=== PATIENT | female | born 1965 | race Caucasian/White ===

== ENCOUNTER 2021-06-05 10:25 | Emergency (ER) | payer BC, SELFPAY ==
--- NOTE | ~2021-06-05 | XR_ITS ---
EXAMINATION: XR LUMBAR SPINE XR HIPS WITH AP PELVIS, BILATERAL CLINICAL INFORMATION: Low back pain and bilateral hip pain. COMPARISON: None TECHNIQUE: AP pelvis 1 view. 2 views each hip. Lumbar spine 5 views. FINDINGS: AP PELVIS: There is normal symmetry of bilateral SI joints and hip joints. No visible fracture or dislocation seen. The soft tissues are normal. RIGHT HIP: AP and frog-leg views right hip reveal no fracture, dislocation, bony erosive changes or loose bodies. No lytic or sclerotic process. The soft tissues appears normal. LEFT HIP: AP and frog-leg views reveal normal hip joint space without bony erosive changes or loose bodies. No visible acute fracture or dislocation seen. No lytic or sclerotic process. LUMBAR SPINE: There is normal lumbar lordosis. The vertebral heights are normal. There is grade 1 anterolisthesis L4-L5. Mild loss of L5-S1 disc height is seen. There is mild ventral spondylosis. No visible acute fracture, dislocation or subluxation seen. XR/XR lumbar spine 4V min IMPRESSION: 1. Grade 1 anterolisthesis L4 on L5 with mild degenerative disc changes L4-L5 and L5 - S1 disc levels. There is mild ventral spondylosis. No lytic or sclerotic process seen. The soft tissues are normal. 2. Unremarkable AP pelvis and bilateral hip exam.
--- NOTE | ~2021-06-05 | XR_ITS ---
EXAMINATION: XR LUMBAR SPINE XR HIPS WITH AP PELVIS, BILATERAL CLINICAL INFORMATION: Low back pain and bilateral hip pain. COMPARISON: None TECHNIQUE: AP pelvis 1 view. 2 views each hip. Lumbar spine 5 views. FINDINGS: AP PELVIS: There is normal symmetry of bilateral SI joints and hip joints. No visible fracture or dislocation seen. The soft tissues are normal. RIGHT HIP: AP and frog-leg views right hip reveal no fracture, dislocation, bony erosive changes or loose bodies. No lytic or sclerotic process. The soft tissues appears normal. LEFT HIP: AP and frog-leg views reveal normal hip joint space without bony erosive changes or loose bodies. No visible acute fracture or dislocation seen. No lytic or sclerotic process. LUMBAR SPINE: There is normal lumbar lordosis. The vertebral heights are normal. There is grade 1 anterolisthesis L4-L5. Mild loss of L5-S1 disc height is seen. There is mild ventral spondylosis. No visible acute fracture, dislocation or subluxation seen. XR/XR hips JESUS min 3V IMPRESSION: 1. Grade 1 anterolisthesis L4 on L5 with mild degenerative disc changes L4-L5 and L5 - S1 disc levels. There is mild ventral spondylosis. No lytic or sclerotic process seen. The soft tissues are normal. 2. Unremarkable AP pelvis and bilateral hip exam.
[2021-06-05 10:57] VITALS: BP 168/88; PULSE 90; RESP 18; TEMP 36.6; O2SAT 98; BMI 28.7
[2021-06-05] MEDS: Lidocaine 4 % Patch ADH..PATCH 1 PATCH TRANSDERMA (12:45)
[2021-06-05] MEDS: NaPROXEN 500 MG TABLET PO (12:46)
[2021-06-05] MEDS: diazePAM 5 MG TABLET PO (12:46)
--- NOTE | 2021-06-05 13:00 | ED_ITS ---
HPI - Back Pain/Injury General Chief Complaint: Back Pain/Injury Stated Complaint: BACK PAIN Time Seen by Provider: 06/05/21 12:21 Source: patient and family Mode of arrival: ambulatory Limitations: language barrier (Romanian-speaking) History of Present Illness HPI Narrative: 55-year-old female denies any significant past medical history reports lower back pain radiating to her bilateral hips after she was moving furniture over the past few days. She denies any falls or trauma, fevers, dizziness, headache, neck pain/stiffness, trouble swallowing or breathing, chest pain or shortness of of breath, dyspnea on exertion, orthopnea, palpitations, nausea/vomiting/diarrhea constipation, abdominal pain, dysuria, hematuria, abnormal vaginal discharge, rashes, history of IV drug use, urinary or bowel incontinence or retention or any other symptoms complaints or concerns at this time. MD elicited complaint: back pain and back injury Onset (ago): day(s) Timing: constant Severity: moderate Similar Symptoms Previously: Yes Quality: aching and spasming Location: lumbar spine Radiation: none (Bilateral hips) Exacerbating factors: movement, walking and lifting Relieving factors: none Context: while lifting, turning/twisting and bending Associated symptoms: denies other symptoms Related Data Previous Rx's Medication Instructions Recorded cyclobenzaprine 10 mg tablet 10 mg PO Q8H PRN #14 tab 06/05/21 naproxen 500 mg tablet 500 mg PO BID PRN #14 tab 06/05/21 oxycodone 5 mg tablet 5 mg PO Q6H PRN #14 tab 06/05/21 Allergies Allergy/AdvReac Type Severity Reaction Status Date / Time No Known Allergies Allergy Verified 06/05/21 10:59 Review of Systems Review of Systems: Constitutional : No trauma, No Weight loss, No Fever, No Ch ills, ENT/Mouth : No Hearing loss, No Ear Pain, No Nasal Congestion, No Sinus Pain, No Hoarseness, No sore throat, No Rhinorrhea, No Swallowing Difficulty Cardiovascular : No Chest Pain, No SOB Respiratory : No Cough, No Dyspnea Gastrointestinal : No Nausea, No Vomiting, No Diarrhea, No abdominal Pain, No Hematochezia, No Melena Genitourinary : No Dysuria, No Urinary Frequency, No Hematuria, No Urinary or Bowel Incontinence/retention Musculoskeletal : + Back pain, No neck pain, No joint stiffness, No joint swelling Skin : No Skin Lesions, No rash or signs of infection Neuro : No Weakness, No radiation, No Numbness, No Paresthesias, No headache, no loss of bowel or bladder incontinence, no saddle anesthesia, Focal weakness, No radiation Denies history of IV drug usage. Yes all other systems are reviewed and are negative [facility] Past Medical History Attestation statement: The following information was validated with the patient. Medical History No known health problems Social History Social History Advance Directives: No Advance Directives Information Provided: No Physical Exam Vital Signs: Vital Signs: Last Vital Signs Temp 97.8 F 06/05/21 10:57 Pulse 90 06/05/21 10:57 Resp 18 06/05/21 10:57 BP 168/88 H 06/05/21 10:57 Pulse Ox 98 06/05/21 10:57 BMI result Body Mass Index 28.7 vital signs have been reviewed as normal and appeared to be correct. Blood pressure normal. Heart rate normal. Respiration rate normal. Temperature normal. Oxygen saturation normal. Appearance: Alert. Oriented X3. No acute distress. Head: Normal external exam. Normocephalic. Atraumatic. No Gonzalez signs noted. No raccoon eyes noted Eyes: PERRLA. EOMI. Conjunctiva and sclera normal. Eyelids normal. ENT: EAC normal. TM's Normal. Pharynx normal. Uvula midline. Moist mucous m embranes. No trismus noted. No drooling noted. No muffled voice noted. Neck: Normal inspection. Neck supple. FROM. No adenopathy. Thyroid Normal. No meningeal signs. No neck mass noted. CVS: Normal heart rate and rhythm. Heart sound normal. No murmurs noted. Pulses normal throughout. Respiratory: No respiratory distress. Painless inspiration. Breath sounds normal. No wheezes/rales/rhonchi noted. Chest nontender. No accessory muscle usage noted or decreased air movement noted. Abdomen: Soft and nontender. Bowel sounds normal in all 4 quadrants. No distention noted. No organomegaly noted. No visible injury noted. Back: No CVA tenderness. Full range of motion noted. No obvious deformities, or edema. Mild para-spinal muscular tenderness from lumbar region to coccyx. Full ROM in back and lower extremities. 5/5 strength hip extension/flexion, abduction, adduction. Mild Lumbar pain with hip flexion against resistance. Straight leg raise test negative on right; Straight leg raise test negative on left; Reflexes normal ankle and knee bilaterally; EHL motor strength normal bilaterally. No rashes/lesion/induration/fluctuance or signs infection noted. Skin: Skin warm and dry. Normal skin color. Normal skin turgor. No rashes/lesions/lacerations noted. Extremities: No lower extremity edema. Extremities exhibit normal range of motion. Extremities nontender. Neuro: Oriented X 3. No motor deficit. No sensory deficit. Reflexes normal. Patient has a normal steady gait. Course Course Course Narrative: Pt c likely muscular pain, but could be herniated disc. Neuro exam shows no deficits. Not c/w AAA/epidural abscess/dissection.No high risk Hx (Incont, fever, immunosupp, recent surgery/LP, coag, signif trauma, wt loss, puls mass, hx/o Ca, TB, or IVDU) to warrant MRI/CT today. Not c/w Pyelo/UTI/kidney stone/spinal fx. Not cauda equina syndrome. Will obtain an x-ray provide 500 mg of naproxen and 5 mg of Valium and Lidoderm patch and re-evaluate. Reevaluation(s) Reevaluation #1: - x-rays revealed chronic changes no acute processes are noted. Therefore will DC home with symptomatic treatment instructions return if any new or worsening symptoms to follow up with primary care provider. Patient understands agrees with this plan. Time: 15:13 [facility] - Back Pain/Injury Medical Records Attestation: I reviewed the patient's medical records. Imaging Data Lumbar spine and bilateral hip x-rays: Attestation: I personally reviewed and interpreted this imaging study as follows: Radiologist's impression: FINDINGS: AP PELVIS: There is normal symmetry of bilateral SI joints and hip joints. No visible fracture or dislocation seen. The soft tissues are normal. RIGHT HIP: AP and frog-leg views right hip reveal no fracture, dislocation, bony erosive changes or loose bodies. No lytic or sclerotic process. The soft tissues appears normal. LEFT HIP: AP and frog-leg views reveal normal hip joint space without bony erosive changes or loose bodies. No visible acute fracture or dislocation seen. No lytic or sclerotic process. LUMBAR SPINE:? There is normal lumbar lordosis. The vertebral heights are normal. There is grade 1 anterolisthesis L4-L5. Mild loss of L5-S1 disc height is seen. There is mild ventral spondylosis. No visible acute fracture, dislocation or subluxation seen. XR/XR lumbar spine 4V min IMPRESSION: 1. Grade 1 anterolisthesis L4 on L5 with mild degenerative disc changes L4-L5 and L5 - S1 disc levels. There is mild ventral spondylosis. No lytic or sclerotic process seen. The soft tissues are normal. ? 2. Unremarkable AP pelvis and bilateral hip exam. Discharge Plan Discharge Clinical Impression: Strain of lumbar region, Strain of hip, Spondylolysis of lumbar region, Anterolisthesis of lumbar spine Patient Disposition: Home, Self-Care Instructions: Low Back Strain (ED), Spondylolisthesis (ED) Prescriptions: New naproxen 500 mg tablet 500 mg PO BID PRN (Reason: pain) Qty: 14 0RF cyclobenzaprine 10 mg tablet 10 mg PO Q8H PRN (Reason: Muscle spasm) Qty: 14 0RF oxycodone 5 mg tablet 5 mg PO Q6H PRN (Reason: pain) Qty: 14 0RF Referrals: Physician,None [Primary Care Provider] - 2 days (your pcp) Print Language: Romanian
[2021-06-05] MEDS: oxyCODONE HCl Immed Release 5 MG TABLET PO (14:28)
== END 2021-06-05 15:37 | disposition home or self-care (01) ==
PROVIDERS: Emergency Provider Emergency Medicine
DX: S39.012A Strain of muscle, fascia and tendon of lower back, initial encounter (principal); S76.012A Strain of muscle, fascia and tendon of left hip, initial encounter; S76.011A Strain of muscle, fascia and tendon of right hip, initial encounter; X50.0XXA Overexertion from strenuous movement or load, initial encounter; M47.816 Spondylosis without myelopathy or radiculopathy, lumbar region; Y93.9 Activity, unspecified; Y92.9 Unspecified place or not applicable; Y99.9 Unspecified external cause status
CPT/HCPCS: 72110; 73522; 99283; 99284